=== PATIENT | male | born 1940 ===

== ENCOUNTER → 2017-07-13 | Outpatient (CLI) | payer MEDICARE, BC ==
[~2017-07-13] MED LIST: ALLEGRA ALLERGY60 MG; ALLEGRA ALLERGY60 MG PO; ASPI81CH PO; Omeprazole20 M1
== END ==
LOC: PLD 11:14 → LAB SHORT 11:14
DX: C44.321 Squamous cell carcinoma of skin of nose (principal)
CPT/HCPCS: 88305

== ENCOUNTER → 2017-07-26 | Outpatient (CLI) | payer MEDICARE, BC | END | disposition home or self-care (01) | LOC: PLD 13:21 → LAB SHORT 13:21 | DX: C44.320 Squamous cell carcinoma of skin of unspecified parts of face (principal) | CPT/HCPCS: 88305 ==

== ENCOUNTER 2017-10-12 07:29 | Day surgery (SDC) | payer MEDICARE, BC ==
[~2017-10-12] VITALS: Ht 190.5 cm; Wt 85.8 kg
[2017-10-12] MEDS ORDERED: ALLEGRA ALLERGY60 MG (08:03)
[2017-10-12] MEDS ORDERED: Omeprazole20 M1 (08:04)
[2017-10-12] MEDS ORDERED: ALLEGRA ALLERGY60 MG PO (08:04)
[2017-10-12] MEDS ORDERED: ASPI81CH PO (08:05)
== END 2017-10-12 09:45 | disposition home or self-care (01) ==
LOC: ORSCSDS 07:29
PROVIDERS: Internal Medicine Gastroenterology
PROC: 0DB68ZX Excision of Stomach, Via Natural or Artificial Opening Endoscopic, Diagnostic (ICD-10-PCS; principal; 2017-10-12 08:45)
PROC: 0DB88ZX Excision of Small Intestine, Via Natural or Artificial Opening Endoscopic, Diagnostic (ICD-10-PCS; principal; 2017-10-12 08:45)
DX: D50.9 Iron deficiency anemia, unspecified (principal); K29.70 Gastritis, unspecified, without bleeding; K21.9 Gastro-esophageal reflux disease without esophagitis; Z79.82 Long term (current) use of aspirin; Z79.899 Other long term (current) drug therapy
CPT/HCPCS: 88305; 88342; J0330; J1980; J2405; J7120

== ENCOUNTER → 2019-01-17 | Outpatient (CLI) | payer MEDICARE, BC | END | disposition home or self-care (01) | LOC: LAB SHORT 07:24 → PLD 07:24 | DX: D11.0 Benign neoplasm of parotid gland (principal) | CPT/HCPCS: 88173 ==

== ENCOUNTER 2019-10-11 10:54 | Day surgery (SDC) | payer MEDICARE, BC ==
[~2019-10-11] VITALS: Ht 188 cm; Wt 87.4 kg
[~2019-10-11 10:54] MED LIST changes: +ALLEGRA ALLERG180 MG PO; +Glucosamine &1 EACH PO; +HYDACE25S PR; +OMEP20ER PO
[2019-10-11] MEDS ORDERED: Preservision A1 EACH PO (11:25)
--- NOTE | 2019-10-11 12:23 | NUR ---
10/11/19 1223 Ivana Preciado (To[place] PT REFUSED DECADRON 10MG IVP; SURGEON NOTIFIED, OKAY TO PROCEED WITHOUT PER PT'S REQUEST.
--- NOTE | 2019-10-11 16:15 | NUR ---
10/11/19 1615 Abby Rose PT. CAME OUT FROM OR WITH GAUZE JUST PLACED AGAINST LEFT SIDE OF NECK. NO DRESSING ON MIDDLE OF FOREHEAD INCISION. SCANT AMT RED BEADED DRAINAGE ON LEFT SIDE OF NECK/FACE & ALSO ON MIDDLE OF FOREHEAD. DARIEL DRAIN INTACT BEHIND LEFT EAR. SMALL AMT. OF RED DRAINAGE IN DARIEL BULB.
--- NOTE | 2019-10-11 16:37 | NUR ---
10/11/19 1637 Abby Rose PT. DENIES ANY PAIN OR NAUSEA.
== END 2019-10-11 17:20 | disposition home or self-care (01) ==
LOC: ORSCSDS 10:54
PROVIDERS: Otolaryngology
PROC: 0CB90ZZ Excision of Left Parotid Gland, Open Approach (ICD-10-PCS; principal; 2019-10-11 12:00)
PROC: 0JB10ZX Excision of Face Subcutaneous Tissue and Fascia, Open Approach, Diagnostic (ICD-10-PCS; principal; 2019-10-11 12:00)
PROC: 0JB10ZZ Excision of Face Subcutaneous Tissue and Fascia, Open Approach (ICD-10-PCS; principal; 2019-10-11 12:00)
PROC: 00BM0ZZ Excision of Facial Nerve, Open Approach (ICD-10-PCS; principal; 2019-10-11 12:00)
DX: D21.0 Benign neoplasm of connective and other soft tissue of head, face and neck (principal); D11.0 Benign neoplasm of parotid gland; K21.9 Gastro-esophageal reflux disease without esophagitis
CPT/HCPCS: 88304; 88307; J0171; J0330; J1100; J2370; J2405; J2704; J3010; J7120

== ENCOUNTER → 2021-08-06 | Outpatient (CLI) | payer MEDICARE, BC ==
[~2021-08-06] MED LIST changes: +Preservision A1 EACH PO
== END | disposition home or self-care (01) ==
LOC: LAB SHORT 11:06 → PLD 11:06
DX: L98.499 Non-pressure chronic ulcer of skin of other sites with unspecified severity (principal)
CPT/HCPCS: 88305; 88312

== ENCOUNTER → 2022-12-21 | Outpatient (CLI) | payer MEDICARE, BC | END | disposition home or self-care (01) | LOC: LAB SHORT 15:11 → LAB 15:11 | DX: C44.622 Squamous cell carcinoma of skin of right upper limb, including shoulder (principal); D48.5 Neoplasm of uncertain behavior of skin | CPT/HCPCS: 88305 ==

== ENCOUNTER 2023-12-15 13:31 | Emergency (ER) | payer MEDICARE, BC ==
[~2023-12-15] VITALS: Ht 185.4 cm; Wt 87.1 kg
[2023-12-15 16:32] VITALS: BP 139/89
== END 2023-12-15 16:33 | disposition home or self-care (01) ==
LOC: ER 13:31
DX: K40.90 Unilateral inguinal hernia, without obstruction or gangrene, not specified as recurrent (principal); Z79.899 Other long term (current) drug therapy; Z88.8 Allergy status to other drugs, medicaments and biological substances
CPT/HCPCS: 76857; 99283-25